=== PATIENT | female | born 1955 | race Caucasian/White ===

== ENCOUNTER 2019-06-22 08:38 | Emergency (ER) | payer BC ==
[2019-06-22 08:45] VITALS: BMI 32.3
--- NOTE | 2019-06-22 08:49 | PDOC ---
History of Present Illness - General Chief Complaint: Pain, Acute Stated Complaint: LEFT INDEX FINGER PAIN Time Seen by Provider: 06/22/19 08:45 History Source: Patient Exam Limitations: No Limitations - History of Present Illness Initial Comments: 06/22/19 08:45 64 y/o female with left 2nd digit injury that occurred almost 1 week ago due to a sewing machine accident. The needle went through her finger. UTD with Tetanus. Thinks she got a piece of the needle out. Now finger is tender and more swollen. No fever. Severity: reports: mild Past History - Past Medical History Allergies/Adverse Reactions: Allergies Allergy/AdvReac Type Severity Reaction Status Date / Time No Known Allergies Allergy Verified 06/22/19 08:39 Home Medications: Ambulatory Orders Cephalexin Monohydrate [Keflex -] 500 mg PO Q8H #15 capsule 06/22/19 Levothyroxine [Synthroid -] 75 mcg PO DAILY 06/22/19 COPD: No CHF: No Thyroid Disease: Yes - Suicide/Smoking/Psychosocial Hx Smoking History: Never smoked Hx Alcohol Use: Yes (SOCIAL) Drug/Substance Use Hx: No Review of Systems - Review of Systems Able to Perform ROS?: Yes Is the patient limited Kiswahili proficient: No Constitutional: No: Chills, Fever Respiratory: No: Shortness of Breath Cardiac (ROS): No: Chest Pain Musculoskeletal: No: Joint Pain Integumentary: No: Erythema, Pruritus All Other Systems: Reviewed and Negative *Physical Exam - Vital Signs Last Vital Signs Temp Pulse Resp BP Pulse Ox 0/0 L 06/22/19 08:39 - Physical Exam General Appearance: Yes: Nourished, Appropriately Dressed. No: Apparent Distress HEENT: positive: EOMI, DAVID, Normal ENT Inspection, Normal Voice Neck: positive: Supple. negative: Tender Respiratory/Chest: positive: Lungs Clear, Normal Breath Sounds Cardiovascular: positive: Regular Rhythm, Regular Rate, S1, S2. negative: Edema Vascular Pulses: Femoral (R): 4+, Femoral (L): 4+, Carotid (R): 4+, Carotid (L) : 4+, Dorsalis-Pedis (R): 4+, Doralis-Pedis (L): 4+ Lymphatic: negative: Adenopathy, Tenderness, Other Musculoskeletal: positive: Normal Inspection. 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 Pt will be placed on antibiotic and UTD with Tetanus X-ray finger: no fracture seen, small metallic structure Will need follow up with her Orthopedics Pt is in agreement with plan *DC/Admit/Observation/Transfer Diagnosis at time of Disposition: Foreign body finger Cellulitis, finger Qualifiers: Laterality: left Qualified Code(s): L03.012 - Cellulitis of left finger - Discharge Dispostion Disposition: HOME Condition at time of disposition: Stable Decision to Admit order: No - Referrals - Patient Instructions Printed Discharge Instructions: DI for Cellulitis -- Adult Additional Instructions: Motrin, rest Keflex 500mg 3x/day for 5 days Follow up with your Orthopedics If worsen return to ER - Post Discharge Activity
[2019-06-22 09:01] VITALS: BP 142/83; PULSE 66; TEMP 98.3
== END 2019-06-22 09:16 | disposition home or self-care (01) ==
LOC: FER 08:38
DX: L03.012 Cellulitis of left finger (principal); S61.241A Puncture wound with foreign body of left index finger without damage to nail, initial encounter; W46.1XXA Contact with contaminated hypodermic needle, initial encounter; Y93.D2 Activity, sewing; Y92.89 Other specified places as the place of occurrence of the external cause
CPT/HCPCS: 73140-TC-LT-FY; 99281-25